=== PATIENT | female | born 1955 | race African-American/Black ===

== ENCOUNTER 2018-09-07 19:29 | Emergency (ER) | payer MEDICAID, OTHER ==
[~2018-09-07] VITALS: Ht 165.1 cm; Wt 72.6 kg
[~2018-09-07 19:29] MED LIST: COLACE100 MG ORAL; HYDROCORTISON28.4 G5 RC; LIPITOR20 MG ORAL; METFORMIN HCL1000 M1 ORAL; NITROFURANTOIN100 M2 ORAL; PHENAZOPYRIDIN200 MG ORAL
[2018-09-07] MEDS ORDERED: Acetaminophen 500mg (ES) tab ORAL ONE (20:00)
[2018-09-07] MEDS ORDERED: Methocarbamol 750mg tab ORAL ONE (20:00)
--- NOTE | 2018-09-07 20:00 | NUR ---
ED Nurse Note: Recieved pt from home with c/o right shoulder pain at 8/10 for past 2 days, denies injury, ans also drainage and left eye irritation, pt denies v Addendum: 09/07/18 at 2002 by EBONY ED Nurse Note: pt denies visual changes or deficits, pt denies any other complaints or discomforts.
--- NOTE | 2018-09-07 20:00 | NUR ---
ED Nurse Note: First contact with pt, seen by dr brantley a/ox4, nad noted, family member at the bedside, pt c/o rt shoulder pain 8/10 x 2 days and left eye redness. pt was given meds see emar per dr brantley's orders .
[2018-09-07 20:10] VITALS: BP 114/71
[2018-09-07] MEDS ORDERED: ROBAXIN-750750 MG PO (20:10)
[2018-09-07] MEDS ORDERED: OFLOXACIN10 ML LEFT EYE (20:10)
[2018-09-07] MEDS ORDERED: TYLENOL EXTRA500 MG ORAL (20:10)
[2018-09-07] MEDS ORDERED: LIDODERM700 M1 TOPIC (20:10)
[2018-09-07 20:19] VITALS: BP 114/71
--- NOTE | 2018-09-07 20:19 | NUR ---
ED Nurse Note: Pt cleared by health care Provider for discharge. DC instructions/prescription was given and explained to pt and verbalized understanding of teachings. All medical deviecs such as ID band removed. Pt is AAO x4, ambulatory and left with all personal belongings. in stable condition
--- NOTE | 2018-09-07 22:36 | Emergency Room Report ---
History of Present Illness General Chief Complaint: Pain Source: Patient Present Illness HPI 62-year-old female presents ED for evaluation. Complaining of left eye redness and watery discharge for the last 5 days. Denies photophobia or blurry vision. Denies any nausea or vomiting. Denies fevers or chills. Also complaining of right shoulder pain since yesterday. Started out with pain in the neck which is then spread to the shoulder. Throbbing, 6 out of 10, nonradiating. Denies neck stiffness. Denies any fall or injury. No other aggravating relieving factors. Denies any other associated symptoms Allergies: Coded Allergies: No Known Allergies (Unverified , 06/14/13) Patient History Past Medical History: DM, other - breast cancer Past Surgical History: none Pertinent Family History: none Social History: Denies: smoking, alcohol use, drug use Last Menstrual Period: 2004 Now: No Immunizations: UTD Reviewed Nursing Documentation: PMH: Agreed; PSxH: Agreed Nursing Documentation-PMH Hx Cardiac Problems: Yes Hx Diabetes: Yes Hx Cancer: Yes - Lt breast Hx Gastrointestinal Problems: No Hx Neurological Problems: No - schizo, neuropathy Review of Systems All Other Systems: negative except mentioned in HPI Physical Exam Vital Signs Date Time Temp Pulse Resp B/P (MAP) Pulse Ox O2 Delivery O2 Flow Rate FiO2 09/07/18 19:44 98.1 93 19 114/71 (85) 96 09/07/18 20:10 Room Air Sp02 EP Interpretation: reviewed, normal General Appearance: no apparent distress, alert, GCS 15, non-toxic Head: normocephalic, atraumatic Eyes: right eye normal inspection; left eye Scleral Injection; bilateral eye PERRL, bilateral eye EOMI ENT: hearing grossly normal, normal pharynx, no angioedema, normal voice Neck: full range of motion, supple, no meningismus, supple/symm/no masses, tender lateral Respiratory: normal inspection Cardiovascular #1: normal inspection Gastrointestinal: normal inspection Rectal: deferred Genitourinary: no CVA tenderness Musculoskeletal: normal inspection Neurologic: alert, oriented x3, responsive, motor strength/tone normal, sensory intact, speech normal Psychiatric: normal inspection Skin: normal inspection Lymphatic: normal inspection Medical Decision Making Diagnostic Impression: Primary Impression: Muscle strain Additional Impression: Conjunctivitis Qualified Codes: H10.32 - Unspecified acute conjunctivitis, left eye ER Course Hospital Course 62-year-old F presents to ED with L eye redness and watery discharge . R sided neck and shoudler pain Differential diagnoses include: conjunctivitis, traumatic iritis, foreign body, corneal abrasion Clinical course Patient placed on stretcher. After initial history, physical exam revealed an elderly female no acute distress. There is injected conjunctiva L eyes. Pupils equally reactive to light bilaterally. No evidence of foreign body. Clinical findings consistent with conjunctivitis. There is no midline cervical tenderness. Paraspinal cervical tenderness noted. Full range of motion to the right shoulder. No crepitus or bruising. No nuchal rigidity. Likely muscular. Given medications here. Discussed findings with patient. Safe for discharge close outpatient follow-up. Will provide referrals Diagnosis - muscle strain, conjunctivitis Stable and discharged to home with prescription for Ocuflox, tylenol, robaxin, lidoderm. Followup with PMD. Return to ED if symptoms recur or worsen Last Vital Signs Date Time Temp Pulse Resp B/P (MAP) Pulse Ox O2 Delivery O2 Flow Rate FiO2 09/07/18 20:19 98.1 88 19 114/71 98 Room Air Status: improved Disposition: HOME, SELF-CARE Condition: Stable Scripts Ofloxacin (Ofloxacin) 5 Ml Drops 1 DROP LEFT EYE QID for 7 Days, ML Prov: Santana Dodson MD 09/07/18 Lidocaine (Lidoderm) 1 Each Adh..patch 1 PATCH TOPIC DAILY, #7 PATCH 0 Refills Patch(es) may remain in place for up to 12 hours in any 24-hour period. Prov: Santana Dodson MD 09/07/18 Methocarbamol* (ROBAXIN-750*) 750 Mg Tablet 750 MG PO TID, #21 TAB 0 Refills Prov: Santana Dodson MD 09/07/18 Acetaminophen* (TYLENOL EXTRA STRENGTH*) 500 Mg Tablet 500 MG ORAL Q8H PRN for Prn Headache/Temp > 101, #30 TAB 0 Refills Prov: Santana Dodson MD 09/07/18 Referrals: ALIN HZOU,REFERRING (PCP) [facility] Open 24 hour /7 days a week by Appointment Only [address] [facility] [address] [facility] [address] Patient Instructions: Muscle Strain, [id number], Bacterial Conjunctivitis, [id number] Santana Dodson MD Sep 07, 2018 22:36
== END 2018-09-07 20:25 | disposition home or self-care (01) ==
LOC: EMR 20:22
DX: H10.32 Unspecified acute conjunctivitis, left eye (principal); M25.511 Pain in right shoulder; T14.8XXA Other injury of unspecified body region, initial encounter; X58.XXXA Exposure to other specified factors, initial encounter; Y92.9 Unspecified place or not applicable; Z85.3 Personal history of malignant neoplasm of breast; F20.9 Schizophrenia, unspecified; E11.40 Type 2 diabetes mellitus with diabetic neuropathy, unspecified
CPT/HCPCS: 99282

== ENCOUNTER 2018-09-13 23:09 | Emergency (ER) | payer OTHER ==
[~2018-09-13] VITALS: Ht 165.1 cm; Wt 72.6 kg
[~2018-09-13 23:09] MED LIST changes: +LIDODERM700 M1 TOPIC; +OFLOXACIN10 ML LEFT EYE; +ROBAXIN-750750 MG PO; +TYLENOL EXTRA500 MG ORAL
[2018-09-13 23:23] VITALS: BP 173/78
--- NOTE | 2018-09-13 23:25 | NUR ---
ED Nurse Note: Patient walked on to ER c/o right shoulder pain 11/21. Per patient she was here at [facility] ER on Tuesday and ER MD did not do anything for her besides Tylenol. AAO x4, VSS at this time, skin is dry warm to touch.
--- NOTE | 2018-09-13 23:44 | Emergency Room Report ---
History of Present Illness General Chief Complaint: Pain Source: Patient, Medical Record Present Illness HPI The patient was here earlier this week for neck pain and pinkeye on the right. The neck pain is better but now she has right-sided shoulder pain in her upper back. The pinkeye has resolved. She has occasional hand numbness with this. She denies any fevers, cough, chest pain per se. When she moves her shoulder but out in her hand causes the pain to be worsened. She feels the muscles extremely tight in the back. Taking Tylenol 500 mg and it has not been touching the pain. She rates the pain 10/10 at this time aching sharp radiating somewhat up into her neck and into her shoulder area. She denies any trauma. The patient smokes and has some expiratory wheezes. She has an inhaler at home. No nausea, vomiting, diarrhea, dysuria, rashes. Allergies: Coded Allergies: No Known Allergies (Unverified , 06/14/13) Patient History Past Medical History: see triage record Social History: Reports: smoking Social History Narrative Boyfriend brought her : 3 Para: 1 Reviewed Nursing Documentation: PMH: Agreed; PSxH: Agreed Nursing Documentation-PMH Hx Cardiac Problems: Yes Hx Diabetes: Yes Hx Cancer: Yes - Lt breast Hx Gastrointestinal Problems: No Hx Neurological Problems: No - schizo, neuropathy Review of Systems All Other Systems: negative except mentioned in HPI Physical Exam Vital Signs Date Time Temp Pulse Resp B/P (MAP) Pulse Ox O2 Delivery O2 Flow Rate FiO2 09/13/18 23:14 97.5 96 18 173/78 (109) 97 Room Air Sp02 EP Interpretation: reviewed, normal General Appearance: well appearing, no apparent distress Head: normocephalic, atraumatic Eyes: bilateral eye normal inspection, bilateral eye PERRL, bilateral eye EOMI ENT: hearing grossly normal, normal voice, moist mucus membranes Neck: full range of motion, supple, tender - Minimally right side Respiratory: no respiratory distress, wheezing, expiration, other - Posterior medial scapular muscle spasm and tenderness no anterior chest wall pain Cardiovascular #1: regular rate, rhythm Cardiovascular #2: 2+ radial (R) - Good capillary refill Gastrointestinal: normal inspection, non tender Genitourinary: no CVA tenderness Musculoskeletal: digits/nails normal, gait/station normal, normal range of motion - Including right shoulder, no calf tenderness, other - Trapezius and medial scapular muscle spasm with tenderness to palpation Neurologic: alert, oriented x3, normal gait, grossly normal Psychiatric: mood/affect normal Skin: no rash Medical Decision Making Diagnostic Impression: Primary Impression: Muscle spasm Additional Impression: Right shoulder pain Qualified Codes: M25.511 - Pain in right shoulder ER Course Patient presents with right shoulder pain. Differential includes bursitis, strain, muscle spasm amongst others. By the physical exam muscle spasm is the diagnosis. She will be treated with Toradol, Percocet and Soma. A sling will be applied. Based on exam x-rays are not indicated. Patient improved with treatment. A sling is applied by the medical imaging technician. This provides improved pain. Neurovascular is checked by me and normal. Discussed treatment plan with patient. Advised physical therapy, heat and massage can help. Patient stable for outpatient observation and treatment. Also discussed with the patient need for smoking cessation. Advised that she ask her doctor to help her with this. Last Vital Signs Date Time Temp Pulse Resp B/P (MAP) Pulse Ox O2 Delivery O2 Flow Rate FiO2 09/14/18 00:21 98.2 09/14/18 00:20 18 173/78 97 Room Air 09/13/18 23:14 96 Status: improved Disposition: HOME, SELF-CARE Condition: Improved Scripts Ibuprofen* (MOTRIN*) 600 Mg Tablet 600 MG ORAL Q6H PRN for For Pain, #16 TAB 0 Refills Prov: Jose Carr MD 09/14/18 Methocarbamol* (ROBAXIN*) 500 Mg Tablet 500 MG PO TID, #10 TAB 0 Refills Prov: Jose Carr MD 09/14/18 Tramadol Hcl* (ULTRAM*) 50 Mg Tablet 50 MG ORAL Q6H PRN for For Pain, #8 TAB 0 Refills Prov: Jose Carr MD 09/14/18 Jose Carr MD Sep 13, 2018 23:44
[2018-09-13] MEDS ORDERED: oxyCODONE HCL/Acetaminophen 5/325mg ORAL ONE (23:45)
[2018-09-13] MEDS ORDERED: Ketorolac 30mg Inj IM ONE (23:45)
[2018-09-14] MEDS ORDERED: ROBAXIN500 MG PO (00:15)
[2018-09-14] MEDS ORDERED: TRAMADOL HCL50 MG ORAL (00:15)
[2018-09-14] MEDS ORDERED: IBUPROFEN600 MG ORAL (00:15)
[2018-09-14 00:20] VITALS: BP 173/78
--- NOTE | 2018-09-14 00:28 | NUR ---
ED Nurse Note: Pt cleared by health care Provider for discharge. DC instructions/prescription was given and explained to pt and verbalized understanding of teachings. All medical deviecs such as ID band removed. Pt is AAO x4, ambulatory and left with all personal belongings.
== END 2018-09-14 00:20 | disposition home or self-care (01) ==
LOC: EMR 23:52
DX: M62.838 Other muscle spasm (principal); M25.511 Pain in right shoulder; M54.6 Pain in thoracic spine; F17.200 Nicotine dependence, unspecified, uncomplicated; Z85.3 Personal history of malignant neoplasm of breast; F20.9 Schizophrenia, unspecified; E11.40 Type 2 diabetes mellitus with diabetic neuropathy, unspecified
CPT/HCPCS: 96372; 99283; J1885

== ENCOUNTER → 2019-11-15 | Outpatient (CLI) | payer MEDICARE, OTHER ==
[~2019-11-15] MED LIST changes: +IBUPROFEN600 MG ORAL; +ROBAXIN500 MG PO; +TRAMADOL HCL50 MG ORAL
--- NOTE | 2019-11-16 16:45 | Diagnostic Imaging Report ---
Indication: Pain Technique: Sagittal T1 and T2 fast spin echo, sagittal STIR, axial T1 and T2 fast spin-echo images of the lumbar spine Comparison: No comparison MRI. Reference made to prior CT scan dated 07/10/2017 Findings: Bony alignment is normal. Vertebral body heights are preserved. Vertebral marrow signal is normal. The disc spaces are preserved. The conus medullaris terminates at the L1-2 level. At L3-4, short pedicles and ligamentum flavum hypertrophy result in borderline narrowing of the spinal canal. No significant disc bulge or protrusion or neural foraminal stenosis. At L4-5, short pedicles and ligamentum flavum hypertrophy result in borderline narrowing of spinal canal. No significant disc bulge or protrusion. No significant neural foraminal stenosis. At L5-S1, there is very mild circumferential annular bulge. This, in combination with short pedicles and ligamentum flavum hypertrophy result in borderline narrowing of the spinal canal. Facet hypertrophy results in mild narrowing of the bilateral neural foramina. Incidental note is made of a right renal cyst. Impression: No acute bony trauma Degenerative changes, as detailed on a level by level basis above
== END | disposition home or self-care (01) ==
LOC: MRI 08:41
DX: M54.5 Low back pain (principal); N28.1 Cyst of kidney, acquired
CPT/HCPCS: 72148

== ENCOUNTER → 2020-01-10 | Outpatient (CLI) | payer MEDICARE, OTHER ==
--- NOTE | 2020-01-10 13:18 | Diagnostic Imaging Report ---
Indication: Right shoulder pain Technique: 3 views of the right shoulder Comparison: none Findings: There is an old healed fracture deformity of the right clavicle. No acute fractures. No dislocations. The joint spaces are preserved Impression: No acute process Old healed right clavicular fracture
== END | disposition home or self-care (01) ==
LOC: RAD 09:21
DX: M25.511 Pain in right shoulder (principal)